=== PATIENT | female | born 1995 ===

== ENCOUNTER 2016-10-21 02:55 | Inpatient (IN) | payer MEDICAID, SELFPAY ==
[2016-10-21 03:50] VITALS: BMI 28.1
[2016-10-21] MEDS ORDERED: Lactated Ringer's 1,000 ML IV SCH (03:50)
[2016-10-21 04:03] VITALS: BP 120/67; PULSE 70; RESP 18; TEMP 98.9; O2SAT 100
[2016-10-21 04:50] LABS: BASO # 0.1 K/uL (0.0-0.2); BASO % 0.8 % (0.0-2.0); EOS # 0.1 K/uL (0.0-0.7); EOS % 0.8 % (0.0-4.0); LYMPH # 2.3 K/uL (1.0-4.3); LYMPH % 21.1 % (20.0-40.0); MEAN CELL VOLUME 83.8 fl (81.0-99.0); MEAN CORPUSCULAR HEMOGLOBIN 27.7 pg (27.0-31.0); MEAN PLATELET VOLUME 10.1 fl (7.2-11.7); MONO # 0.8 K/uL (0.0-0.8); MONO % 7.5 % (0.0-10.0); NEUT # 7.7 K/uL (1.8-7.0); NEUT % 69.8 % (50.0-75.0); RED CELL DISTRIBUTION WIDTH 14.9 % (11.5-14.5)
[2016-10-21] MEDS ORDERED: Lidocaine 1% Inj (20ml) ONE (05:37)
[2016-10-21] MEDS ORDERED: Oxytocin 30 units/LR 500ML 30 U/500 ML BAG IV ONE ×2 (07:58→08:36)
[2016-10-21] MEDS ORDERED: Oxycodone/Acetaminophen 5/325 mg Tab PO PRN ×4 (08:43→11:59)
[2016-10-21] MEDS ORDERED: Benzocaine/Menthol SPRAY TOP PRN ×2 (08:43→11:59)
[2016-10-22 09:34] LABS: HEMATOCRIT 36.1 % (34.0-47.0); MEAN CORPUSCULAR HEMOGLOBIN 27.7 pg (27.0-31.0); RED CELL DISTRIBUTION WIDTH 15.1 % (11.5-14.5); WHITE BLOOD COUNT 11.2 K/uL (4.8-10.8)
--- NOTE | 2016-10-22 17:47 | OBPPN ---
Datetime: 10/22/2016 06:54 PP Pain Prov: Within normal limits PP Nausea Prov: Denies PP Flatus Prov: Yes (Annotations: Data stored by CPN on behalf of user) PP BM Prov: No PP Breasts Prov: Normal PP Heart Prov: Normal PP Lungs Prov: Normal PP Abdomen/Uterus Prov: Normal PP Lochia Prov: Normal (Annotations: Data stored by [employer] on behalf of user) PP Extremities Prov: Normal PP C/S Incision Prov: Not Applicable PP Progress Prov: Normal PP Comments Phys Exam Prov: Fundus firm below umbilicus PP Impression Prov: Normal progression PP Plan Prov: Continue present management PP Progress Note Prov: 20 yo , seen and examined bedside. Patient denies any overnight events. She reports mild/pelvic pain controlled w/ pain meds. OOB/Ambulating w/o dizziness. Breast/bottle f eeding w/o difficulty. Tolerating PO diet well. Lochia is less than menses in volume. Voiding free ly . Pt has passed gas but has not yet had a bowl movement. Denies fevers, chills, n/v/d, CP/SOB, li ghtheadedness and calf pain. Assessment: 20 yo , s/p on 10/21/16 @ 7:41 tolerating pain w/ medication, tolerating or al intake, adequate urine output, doing well on PPD#1 Plan: - Mild/mod pain PRN: Ibuprofen 600mg PO Q6 PRN pain -Encourage breast feeding and ambulation [place] PGY-1 [facility] ADDENDUM: pt seen _ examined by me. agree with above assessment and plan. IP PP Procedures: None Vital Signs Provider PP: Reviewed
== END 2016-10-23 13:30 | disposition home or self-care (01) | DRG 373 ==
LOC: H.EROB2 02:55 → H.L&D 03:51 → H.OB/GYN 12:00
PROVIDERS: ADMIT Obstetrics & Gynecology; ATTEND Obstetrics & Gynecology
PROC: 10E0XZZ Delivery of Products of Conception, External Approach (ICD-10-PCS; principal; 2016-10-21)
PROC: 0HQ9XZZ Repair Perineum Skin, External Approach (ICD-10-PCS; 2016-10-21)
PROC: 4A1HXCZ Monitoring of Products of Conception, Cardiac Rate, External Approach (ICD-10-PCS; 2016-10-21)
DX: O48.0 Post-term pregnancy (principal); O77.0 Labor and delivery complicated by meconium in amniotic fluid; Z37.0 Single live birth; Z3A.40 40 weeks gestation of pregnancy; O71.89 Other specified obstetric trauma